=== PATIENT | male | born 1960 | race Caucasian/White ===

== ENCOUNTER 2019-08-07 03:12 | Emergency (ER) | payer OTHER ==
[~2019-08-07] VITALS: Ht 177.8 cm; Wt 69.3 kg
[2019-08-07 03:16] VITALS: BP 118/83
--- NOTE | 2019-08-07 04:10 | NUR ---
fito velasco called pt to triage for pit, pt not in lobby
--- NOTE | 2019-08-07 04:14 | NUR ---
per security this pt left the lobby
== END 2019-08-07 04:16 | disposition left against medical advice (07) ==
LOC: ED 04:05
DX: Z53.21 Procedure and treatment not carried out due to patient leaving prior to being seen by health care provider (principal)